=== PATIENT | female | born 1970 | race Caucasian/White ===

== ENCOUNTER → 2017-03-30 | Outpatient (CLI) | payer OTHER ==
--- NOTE | 2017-03-30 11:03 | WOMENS IMAGING REPORT ---
EXAM DESCRIPTION: BONE DENSITY HIP/SPINE COMPLETED DATE/TIME: 03/30/2017 9:14 am REASON FOR STUDY: OSTEOPOROSIS; M81.0 M81.0 AGE-RELATED OSTEOPOROSIS W/O CURRENT PATHOLOGICAL FRAC COMPARISON: 03/28/2015 TECHNIQUE: Dual-Energy X-ray Absorptiometry (DEXA) of the AP Spine and Hip. LIMITATIONS: None. FINDINGS: LUMBAR SPINE: The bone mineral density (BMD) measured from L1-L4 in the AP projection correlates with a T-score of 1.7, which is normal as defined by the World Health Organization. HIP: The bone mineral density (BMD) measured in the lab hip correlates with a T-score of 1.0, which is nor mal as defined by the World Health Organization. IMPRESSION: 1. LUMBAR SPINE: Normal 2. HIP: Normal COMMENT: The World Health Organization defines low BMD as follows: T-score: Normal: Greater than -1.0 Osteopenia: Between -1.0 and -2.5 Osteoporosis: Less than -2.5 without fractures Established osteoporosis: Less than -2.5 with fractures In general, you may wish to consider: Diagnosis Treatment Follow-up DEXA Normal BMD Prevention 2-3 years Osteopenia Prevention/Therapy 1-2 years Osteoporosis Therapy Yearly TECHNICAL DOCUMENTATION: JOB ID: [id number] [employer]- All Rights Reserved
== END ==
LOC: WI 08:48
PROVIDERS: ATTEND Internal Medicine
DX: M81.0 Age-related osteoporosis without current pathological fracture (principal)
CPT/HCPCS: 77080

== ENCOUNTER → 2017-04-15 | Outpatient (CLI) | payer OTHER ==
--- NOTE | 2017-04-15 17:03 | WOMENS IMAGING REPORT ---
EXAM DESCRIPTION: 3D DX MAMMO LEFT UNILAT; U/S BREAST UNILAT LIMITED COMPLETED DATE/TIME: 04/15/2017 8:40 am; 04/15/2017 9:05 am REASON FOR STUDY: LUMP IN BREAST; N63; LT BREAST LUMP N63 UNSPECIFIED LUMP IN BREAST COMPARISON: Multiple since 2008 TECHNIQUE: Standard craniocaudal and mediolateral oblique images of the breast recorded using digita l acquisition and breast tomosynthesis. Left breast ultrasound was also performed LIMITATIONS: None. FINDINGS: BREAST: Left MASSES: No suspicious masses. CALCIFICATIONS: No new or suspicious calcifications. ARCHITECTURAL DISTORTION: None. DEVELOPING DENSITY: None. ASYMMETRY: None noted. OTHER: No other significant findings. Read with the assistance of CAD. .[facility] - R2 Cenova Version 1.3 .[facility] Imaging - R2 Cenova Version 1.3 .[facility] Imaging - R2 Cenova Version 2.4 .[facility] [place] - R2 Cenova Version 2.4 .[facility] - R2 Commodity Director Version 9.2 Left breast ultrasound: Patient indicates a palpable abnormality at the 12 to 1 o'clock position left breast. Ultrasound of this area demonstrates a cluster of simple cysts, largest is 1.7 x 1.3 cm in size. Other smaller cys ts less than 1 cm are present at the 12 o'clock position. No solid nodules. No worrisome acoustic a bsorption. IMPRESSION: No tomosynthesis/ultrasound evidence of malignancy left breast. Palpable abnormality co rrelates with a cluster of breast parenchymal cysts. BREAST DENSITY: d. The breasts are extremely dense, which lowers the sensitivity of mammography. BIRAD: 2 Benign findings. RECOMMENDATION: RECOMMENDED FOLLOW UP: Patient is due for bilateral screening tomosynthesis in June 2017 SPECIFIC INTERVENTION/IMAGING/CONSULTATION RECOMMENDED:No additional intervention/ imaging/consultati on needed at this time. COMMUNICATION:Patient notified by letter COMMENT: The patient has been notified of the results by letter per SA requirements. Additional no tification policies are in place for contacting patient with suspicious or incomplete findings. Quality ID #[id number]: The [employer] recommends an annual screening mammogram for women aged 40 years or over. This facility utilizes a reminder system to ensure that all patients receive reminder letters, and/or direct phone calls for appointments. This includes reminders for routine scr eening mammograms, diagnostic mammograms, or other Breast Imaging Interventions when appropriate. Th is patient will be placed in the appropriate reminder system. The [employer] (ACR) has developed recommendations for screening MRI of the breast s in certain patient populations, to be used in conjunction with mammography. Breast MRI surveillanc e may be appropriate for women with more than 20% lifetime risk of developing breast cancer as deter mined by genetic testing, significant family history of the disease, or history of mantle radiation f or Hodgkins Disease. ACR Practice Guidelines 2008. DBT Technology DBT is a type of tomographic mammography. With conventional mammography, overlapping breast tissue ma y make lesions difficult to detect, even with good compression. DBT uses an x-ray tube that rotates a round the breast, taking images at different angles. These images are then combined to create thin sl ices of the breast that the radiologist can view as a 3D reconstruction. The [employer] unit can perform full-field digital mammograms (2D imaging); or DBT (3D imaging); or both, in a combination mode that quickly performs both the mammogram and the tomosynthesis scan while the breast is still compressed. PQRS 6045F: Fluoroscopic imaging is not utilized for breast tomosynthesis. TECHNICAL DOCUMENTATION: FINDING NUMBER: (1) ASSESSMENT: (1) JOB ID: [id number] [employer]- All Rights Reserved
--- NOTE | 2017-04-15 17:03 | WOMENS IMAGING REPORT ---
EXAM DESCRIPTION: 3D DX MAMMO LEFT UNILAT; U/S BREAST UNILAT LIMITED COMPLETED DATE/TIME: 04/15/2017 8:40 am; 04/15/2017 9:05 am REASON FOR STUDY: LUMP IN BREAST; N63; LT BREAST LUMP N63 UNSPECIFIED LUMP IN BREAST COMPARISON: Multiple since 2008 TECHNIQUE: Standard craniocaudal and mediolateral oblique images of the breast recorded using digita l acquisition and breast tomosynthesis. Left breast ultrasound was also performed LIMITATIONS: None. FINDINGS: BREAST: Left MASSES: No suspicious masses. CALCIFICATIONS: No new or suspicious calcifications. ARCHITECTURAL DISTORTION: None. DEVELOPING DENSITY: None. ASYMMETRY: None noted. OTHER: No other significant findings. Read with the assistance of CAD. .[facility] - R2 Cenova Version 1.3 .[facility] Imaging - R2 Cenova Version 1.3 .[facility] Imaging - R2 Cenova Version 2.4 .[facility] - R2 Cenova Version 2.4 .[facility] - R2 Partition Setter Version 9.2 Left breast ultrasound: Patient indicates a palpable abnormality at the 12 to 1 o'clock position left breast. Ultrasound of this area demonstrates a cluster of simple cysts, largest is 1.7 x 1.3 cm in size. Other smaller cys ts less than 1 cm are present at the 12 o'clock position. No solid nodules. No worrisome acoustic a bsorption. IMPRESSION: No tomosynthesis/ultrasound evidence of malignancy left breast. Palpable abnormality co rrelates with a cluster of breast parenchymal cysts. BREAST DENSITY: d. The breasts are extremely dense, which lowers the sensitivity of mammography. BIRAD: 2 Benign findings. RECOMMENDATION: RECOMMENDED FOLLOW UP: Patient is due for bilateral screening tomosynthesis in June 2017 SPECIFIC INTERVENTION/IMAGING/CONSULTATION RECOMMENDED:No additional intervention/ imaging/consultati on needed at this time. COMMUNICATION:Patient notified by letter COMMENT: The patient has been notified of the results by letter per SA requirements. Additional no tification policies are in place for contacting patient with suspicious or incomplete findings. Quality ID #[id number]: The [employer] recommends an annual screening mammogram for women aged 40 years or over. This facility utilizes a reminder system to ensure that all patients receive reminder letters, and/or direct phone calls for appointments. This includes reminders for routine scr eening mammograms, diagnostic mammograms, or other Breast Imaging Interventions when appropriate. Th is patient will be placed in the appropriate reminder system. The [employer] (ACR) has developed recommendations for screening MRI of the breast s in certain patient populations, to be used in conjunction with mammography. Breast MRI surveillanc e may be appropriate for women with more than 20% lifetime risk of developing breast cancer as deter mined by genetic testing, significant family history of the disease, or history of mantle radiation f or Hodgkins Disease. ACR Practice Guidelines 2008. DBT Technology DBT is a type of tomographic mammography. With conventional mammography, overlapping breast tissue ma y make lesions difficult to detect, even with good compression. DBT uses an x-ray tube that rotates a round the breast, taking images at different angles. These images are then combined to create thin sl ices of the breast that the radiologist can view as a 3D reconstruction. The [email or web address] unit can perform full-field digital mammograms (2D imaging); or DBT (3D imaging); or both, in a combination mode that quickly performs both the mammogram and the tomosynthesis scan while the breast is still compressed. PQRS 6045F: Fluoroscopic imaging is not utilized for breast tomosynthesis. TECHNICAL DOCUMENTATION: FINDING NUMBER: (1) ASSESSMENT: (1) JOB ID: [id number] [employer]- All Rights Reserved
== END ==
LOC: WI 14:33
PROVIDERS: ATTEND Internal Medicine
DX: N60.02 Solitary cyst of left breast (principal)
CPT/HCPCS: 77061; 76642; G0206

== ENCOUNTER → 2018-04-07 | Outpatient (CLI) | payer OTHER ==
--- NOTE | 2018-04-07 15:54 | WOMENS IMAGING REPORT ---
EXAM DESCRIPTION: BILAT SCREENING MAMMO W/CAD COMPLETED DATE/TIME: 04/07/2018 9:15 am REASON FOR STUDY: ROUTINE SCREENING;Z12.31 Z12.31 ENCNTR SCREEN MAMMOGRAM FOR MALIGNANT NEOPLASM OF BENEDICT COMPARISON: Multiple since 2008 TECHNIQUE: Standard craniocaudal and mediolateral oblique views of each breast recorded using [employer] l acquisition. LIMITATIONS: None. FINDINGS: Findings present which are benign by mammographic criteria. No suspicious masses, calcifi cations or architectural distortion. Pertinent benign findings: Benign bilateral breast parenchymal calcifications Read with the assistance of CAD. .[facility] - R2 Cenova Version 1.3 .[facility] Imaging - R2 Cenova Version 1.3 .[facility] - R2 Cenova Version 2.4 .[facility] [place] R2 Cenova Version 2.4 .[facility] - R2 Yarn Handler Version 9.2 Benign mammographic findings may include one or more of the following: Smooth masses, popcorn/rim/co arse calcifications, asymmetries, post-procedure changes, and lesions with long-standing stability. IMPRESSION: BENIGN MAMMOGRAPHIC FINDINGS. BIRADS 2 BREAST DENSITY: d. The breasts are extremely dense, which lowers the sensitivity of mammography. BIRAD: 2 BENIGN FINDING(S) RECOMMENDATION: ROUTINE SCREENING Please consider bilateral screening tomosynthesis in March 2019 given extremely dense fibroglandular t issue bilaterally COMMENT: The patient has been notified of the results by letter per SA requirements. Additional no tification policies are in place for contacting patient with suspicious or incomplete findings. Quality ID #[id number]: The [employer] recommends an annual screening mammogram for women aged 40 years or over. This facility utilizes a reminder system to ensure that all patients receive reminder letters, and/or direct phone calls for appointments. This includes reminders for routine scr eening mammograms, diagnostic mammograms, or other Breast Imaging Interventions when appropriate. Th is patient will be placed in the appropriate reminder system. The [employer] (ACR) has developed recommendations for screening MRI of the breast s in certain patient populations, to be used in conjunction with mammography. Breast MRI surveillanc e may be appropriate for women with more than 20% lifetime risk of developing breast cancer as deter mined by genetic testing, significant family history of the disease, or history of mantle radiation f or Hodgkins Disease. ACR Practice Guidelines 2008. TECHNICAL DOCUMENTATION: FINDING NUMBER: (1) ASSESSMENT: (1) JOB ID: [id number] [employer]- All Rights Reserved Reading location - IP/workstation name: [email or web address]
== END ==
LOC: WI 09:06
PROVIDERS: ATTEND Internal Medicine Geriatric Medicine
DX: Z12.31 Encounter for screening mammogram for malignant neoplasm of breast (principal)
CPT/HCPCS: 77067

== ENCOUNTER → 2019-08-22 | Outpatient (CLI) | payer OTHER ==
--- NOTE | 2019-08-22 16:43 | WOMENS IMAGING REPORT ---
EXAM DESCRIPTION: BILAT SCREENING MAMMO W/CAD COMPLETED DATE/TIME: 08/22/2019 4:09 pm REASON FOR STUDY: Z12.31 SCREENING MAMMO Z12.31 ENCNTR SCREEN MAMMOGRAM FOR MALIGNANT NEOPLASM OF B RE COMPARISON: 2015, 2017 EXAM PARAMETERS: Standard craniocaudal and mediolateral oblique views of each breast recorded using digital acquisition. Read with the assistance of CAD. .[facility] - PAX Streamline Scooper Version 9.2 LIMITATIONS: None. FINDINGS: No suspicious masses, suspicious calcifications or architectural distortion. No areas of c oncern. IMPRESSION: Negative MAMMOGRAM. BIRADS 1 BREAST DENSITY: c. The breasts are heterogeneously dense, which may obscure small masses. BIRAD: ASSESSMENT: 1 NEGATIVE RECOMMENDATION: ROUTINE SCREENING COMMENT: The patient has been notified of the results by letter per MQSA requirements. Additional no tification policies are in place for contacting patient with suspicious or incomplete findings. Quality ID #[id number]: The [employer] recommends an annual screening mammogram for women aged 40 years or over. This facility utilizes a reminder system to ensure that all patients receive reminder letters, and/or direct phone calls for appointments. This includes reminders for routine scr eening mammograms, diagnostic mammograms, or other Breast Imaging Interventions when appropriate. Th is patient will be placed in the appropriate reminder system. TECHNICAL DOCUMENTATION: FINDING NUMBER: (1) ASSESSMENT: (1) JOB ID: [id number] [employer]- All Rights Reserved Reading location - IP/workstation name: [email or web address]
== END ==
LOC: WI 15:15
PROVIDERS: ATTEND Internal Medicine Geriatric Medicine
DX: Z12.31 Encounter for screening mammogram for malignant neoplasm of breast (principal)
CPT/HCPCS: 77067

== ENCOUNTER 2019-09-12 06:32 | Day surgery (SDC) | payer OTHER ==
[~2019-09-12 06:32] MED LIST: DEXTROSE 5%-LACTATED RINGERS 1,000 ML IV PRN
[2019-09-12 07:16] LABS: ABSOLUTE BASOPHILS # (AUTO) 0.1 10^3/uL (0.0-0.2); ABSOLUTE EOSINOPHILS # (AUTO) 0.3 10^3/uL (0.0-0.6); ABSOLUTE LYMPHOCYTES (AUTO) 1.6 10^3/uL (0.5-4.7); ABSOLUTE MONOCYTES (AUTO) 0.6 10^3/uL (0.1-1.4); ABSOLUTE NEUT (AUTO) 3.6 10^3/uL (1.7-8.2); EOSINOPHILS % (AUTO) 5.4 % (0-6); HEMATOCRIT 44.4 % (36.0-47.0); HEMOGLOBIN 15.4 g/dL (12.0-15.5); LYMPHOCYTES % (AUTO) 25.7 % (13-45); MEAN CORPUSCULAR HGB CONC 34.7 g/dL (32.0-36.0); MEAN CORPUSCULAR VOLUME 95 fl (80-97); MONOCYTES % (AUTO) 9.1 % (3-13); PLATELET COUNT 191 10^3/uL (150-450); RED BLOOD COUNT 4.68 10^6/uL (3.72-5.28); RED CELL DISTRIBUTION WIDTH 13.1 % (11.5-14.0); SEGMENTED NEUTROPHILS % (AUTO) 58.8 % (42-78); TOTAL CELLS COUNTED % (AUTO) 100 %; WHITE BLOOD COUNT 6.2 10^3/uL (4.0-10.5)
[2019-09-12] MEDS ORDERED: ONDANSETRON HCL INJ/PF 4 MG/2 ML SDV ONE (08:31)
[2019-09-12] MEDS ORDERED: FENTANYL CITRATE INJ/PF 100 MCG/2 ML AMPUL ONE (08:31)
[2019-09-12] MEDS ORDERED: PROPOFOL INJ 200 MG/20 ML VIAL IV ONE ×2 (08:31→09:26)
[2019-09-12] MEDS ORDERED: MIDAZOLAM 2 MG/2 ML INJ ONE (08:31)
[2019-09-12] MEDS ORDERED: DEXAMETHASONE SOD PHOSPHATE INJ 4 MG/1 ML VIAL ONE (08:31)
[2019-09-12] MEDS ORDERED: BUPIVACAINE HCL 0.5 % INJ/PF 30 ML SDV ONE (08:41)
[2019-09-12] MEDS ORDERED: LIDOCAINE 0.5% INJ-PF (5 MG/ML) 50 ML SDV ONE (08:41)
--- NOTE | 2019-09-12 09:27 | Discharge Summary ---
Discharge Summary (SDC) - Discharge Final Diagnosis: 1. History of Hodgkin's lymphoma 2. Exhausted right subclavian Sqvuqf-o-Ogub catheter Date of Surgery: 09/12/19 Discharge Date: 09/12/19 Condition: Good Treatment or Instructions: Remove compression dressing in 48 hours; may shower in 24 hours keeping dressing dry. Return to [facility] in weeks for postoperative check. Patient may take Tylenol Motrin as needed pain. Referrals: YESY HUGHES MD [Primary Care Provider] - Discharge Diet: As Tolerated Discharge Activity: Activity As Tolerated Home Care Assistance: None Needed Adaptive Devices on Discharge: Standard Walker Report the Following to Your Physician Immediately: Shortness of Breath, Increase in Pain, Fever over 101 Degrees
--- NOTE | 2019-09-12 09:30 | Operative Report ---
Operative Report DATE OF SURGERY: 09/12/19 PREOPERATIVE DIAGNOSIS: 1. History of Hodgkin's lymphoma. 2. Exhausted right subclavian Zskmkh-x-Qcdz catheter POSTOPERATIVE DIAGNOSIS: Same OPERATION: Removal of right subclavian Xqvdrg-u-Iwbb catheter SURGEON: EDWARDO CENTENO ANESTHESIA: LMAC TISSUE REMOVED OR ALTERED: Port and pseudocapsule COMPLICATIONS: None ESTIMATED BLOOD LOSS: Scant INTRAOPERATIVE FINDINGS: See below PROCEDURE: The patient was seen in the preop holding area with the right subclavian area was marked. She was then taken the main operating room where LMAC anesthesia was induced. Arms were tucked, right chest and neck were prepped and draped in sterile fashion. Surgical plan and surgical timeout were conducted. The right subclavian Iroofw-v-Foic site was anesthetized 1% plain lidocaine. A 2 and half centimeter long incision was made over the previous subclavian scar. The underlying port was removed in its entirety including the catheter which was tunneled up over the clavicle into the right internal jugular vein. The port and catheter were disposed of. The sheath rounding the catheter was oversewed with 3-0 Vicryl suture. The pseudocapsule was debrided from the patient using electrocautery and fragments disposed of. Cavity was irrigated with saline, and closed at the skin level with multiple interrupted 3-0 Vicryl sutures, benzoin and Steri-Strips. Compression dressing of 4 x 4's and tape applied. Patient tolerated the procedure well, taken recovery in stable condition.
[2019-09-12 11:27] VITALS: BP 104/66
== END 2019-09-12 10:55 | disposition home or self-care (01) ==
LOC: OROUT 06:32
PROVIDERS: ATTEND Surgery
DX: Z45.2 Encounter for adjustment and management of vascular access device (principal); Z88.8 Allergy status to other drugs, medicaments and biological substances; Z85.71 Personal history of Hodgkin lymphoma; Z79.899 Other long term (current) drug therapy; F17.210 Nicotine dependence, cigarettes, uncomplicated
CPT/HCPCS: 36415; 85025; 00532; 36590; J2250; J1100; J3010; J3490; J2405; J2704; 532